=== PATIENT | male | born 1995 | race Caucasian/White ===

== ENCOUNTER 2018-08-01 19:20 | Outpatient (CLI) | payer OTHER | END 2018-08-01 19:21 | disposition EMS.NT | LOC: EMS 19:20 | PROVIDERS: ATTEND Surgery | DX: R69 Illness, unspecified (principal) ==

== ENCOUNTER 2020-08-27 15:42 | Emergency (ER) | payer MEDICAID, OTHER ==
--- NOTE | 2020-08-27 17:08 | ED Physician Documentation ---
History of Present Illness - Stated complaint Stated Complaint: BILAT ARM REDNESS - Chief complaint Chief Complaint: General - Additonal information Additional information: 25-year-old male presents emergency department for evaluation of a rash on bilateral inner elbows that has had for most of his life. He reports that he has psoriasis. As the weather gets warmer and he is outside he sweats more the rash tends to flare. Because he is marginally homed he has not had access to treatment. Typically in the past steroids have helped the rash. He also has a history of Crohn's disorder and was previously on Stelara however he has not taken it for about 6 months as he was socially displaced. He did recently acquire state insurance and is in the process of getting established with a new primary. He denies abdominal pain fevers black or bloody stools. Review of Systems Constitutional: reports: Reviewed and negative Ears: reports: Reviewed and negative Cardiac: reports: Reviewed and negative Respiratory: reports: Reviewed and negative GI: denies: Abdominal Pain, Nausea, Hematemesis, Bloody / black stool : denies: Dysuria, Frequency, Hesitancy Skin: reports: Rash Musculoskeletal: reports: Reviewed and negative PD PAST MEDICAL HISTORY - Past Medical History Past Medical History: Yes Cardiovascular: None Respiratory: None GI: Crohn's disease HEENT: None Psych: Depression, ADD/ADHD, Other Derm: Other - Past Surgical History Past Surgical History: Yes General: Colonoscopy, Other - Present Medications Home Medications: Ambulatory Orders Medication Instructions Recorded Confirmed Betamethasone Aug 0.05% Cream 15 gm TOP BID #1 unit 08/27/20 [Diprolene AF 0.05% Cream] - Allergies Allergies/Adverse Reactions: Allergies Allergy/AdvReac Type Severity Reaction Status Date / Time No Known Drug Allergies Allergy Verified 08/27/20 16:01 - Social History Does the pt smoke?: Yes Smoking Status: Current every day smoker Does the pt drink ETOH?: No Does the pt have substance abuse?: Yes Substance Use and Type: Marijuana, Meth - Immunizations Immunizations are current?: No PD ED PE EXPANDED - General General: Alert, No acute distress - Cardiac Cardiac: Regular Rate, Radial strong equal, Pedal strong equal - Abdomen Abdomen: Normal Bowel sounds. No: Tender to palpation - Derm Derm: Normal color, Warm and dry, Rash (scaling, red pruritic patchy rash inner elbows bilaterally. not present elsewhere) Results - Vitals Vitals: Vital Signs - 24 hr 08/27/20 16:02 Temperature 36.9 C Heart Rate 87 Respiratory 16 Rate Blood Pressure 116/77 O2 Saturation 98 Oxygen O2 Source Room air PD MEDICAL DECISION MAKING - ED course Complexity details: d/w patient ED course: 25-year-old male has a history of Crohn's as well as psoriasis presents to the ER for worsening rash on inner elbows. The rash is consistent with psoriasis. Patient will be started on betamethasone cream for treatment of this rash. I encouraged him to continue follow-up with primary care doctor to reestablish care and have long-term management of his Crohn's. At this time he denies any abdominal pain loose black or bloody stools. Departure - Departure Disposition: 01 Home, Self Care Clinical Impression: Psoriasiform eczema Condition: Stable Record reviewed to determine appropriate education?: Yes Prescriptions: Betamethasone Aug 0.05% Cream [Diprolene AF 0.05% Cream] 15 gm TOP BID #1 unit Comments: Pcaheco your rash is consistent with psoriasis. Because it is localized only to your inner elbows I would like you to apply the betamethasone cream to your rash twice daily. Please schedule an appointment with your primary care provider to get reestablished and discuss long-term management of your Crohn's disease. If at any point the rash is worsening, you develop fevers red streaking have severe belly pain black or bloody stools please return to the ER.
[2020-08-27 17:27] VITALS: BP 121/66
== END 2020-08-27 17:29 | disposition home or self-care (01) ==
LOC: ED 15:42
DX: L30.8 Other specified dermatitis (principal); K50.90 Crohn's disease, unspecified, without complications; F17.200 Nicotine dependence, unspecified, uncomplicated
CPT/HCPCS: 99282; 99283

== ENCOUNTER 2020-10-03 20:56 | Emergency (ER) | payer MEDICAID ==
[2020-10-03 21:15] VITALS: BP 114/80
[2020-10-03] MEDS ORDERED: BENZONATATE 100 MG CAPSULE PO STA (22:10)
--- NOTE | 2020-10-03 22:14 | ED Physician Documentation ---
History of Present Illness - Stated complaint Stated Complaint: COUGH/SI - Chief complaint Chief Complaint: Resp - History obtained from History obtained from: Patient - Additonal information Additional information: 25-year-old man with history of bipolar, depression, anxiety, without prior psych hospitalization and not currently taking any meds presents with depressive symptoms over the past several days related to pressure on him to get a job. Patient also states that he "slept on the concrete last night" because he was helping someone move late at night and they left him and he could get back to Deejay's house. Patient endorses passive suicidal thoughts but no active plan, denies prior suicide attempt or inpatient psych hospitalization. Denies HI or AVH. He is not interested in inpatient psych hospitalization on this visit. Patient also endorses sore throat and a nonproductive cough that started just prior to arrival. Denies ear pain or fever. Review of Systems Ten Systems: 10 systems reviewed and negative Constitutional: denies: Fever, Chills Nose: denies: Rhinorrhea / runny nose, Congestion Throat: reports: Sore throat Cardiac: denies: Chest pain / pressure Respiratory: reports: Cough. denies: Dyspnea GI: denies: Nausea Psychiatric: reports: Depressed. denies: Homicidal, Hallucinations PD PAST MEDICAL HISTORY - Past Medical History Cardiovascular: None Respiratory: None GI: Crohn's disease HEENT: None Psych: Depression, ADD/ADHD, Other Derm: Other - Past Surgical History Past Surgical History: Yes General: Colonoscopy, Other - Present Medications Home Medications: Ambulatory Orders Medication Instructions Recorded Confirmed Benzonatate [Tessalon] 100 mg PO TID PRN #30 10/03/20 - Allergies Allergies/Adverse Reactions: Allergies Allergy/AdvReac Type Severity Reaction Status Date / Time No Known Drug Allergies Allergy Verified 10/03/20 21:15 - Social History Does the pt smoke?: Yes Smoking Status: Current every day smoker Does the pt drink ETOH?: No Does the pt have substance abuse?: Yes - Immunizations Immunizations are current?: No PD ED PE NORMAL - Vitals Vital signs reviewed: Yes - General General: Alert and oriented X 3, No acute distress, Well developed/nourished - HEENT HEENT: Atraumatic, PERRL, EOMI, Moist mucous membranes, Pharynx benign, Other (Mild posterior oropharyngeal erythema) - Neck Neck: Supple, no meningeal sign - Cardiac Cardiac: RRR - Respiratory Respiratory: No respiratory distress, Clear bilaterally - Derm Derm: Normal color, Warm and dry - Neuro Neuro: Alert and oriented X 3 - Psych Psych: Other (Blunted affect. Good eye contact. Endorses depression and passive suicidality but no active intent. Denies HI or AVH) Results - Vitals Vitals: Vital Signs - 24 hr 10/03/20 10/03/20 21:11 22:22 Temperature 36.8 C 36.8 C Heart Rate 100 100 Respiratory 16 16 Rate Blood Pressure 114/80 114/80 O2 Saturation 100 100 Oxygen O2 Source Room air PD MEDICAL DECISION MAKING - ED course ED course: Patient does not want to stay for evaluation for possible IPP hospitalization. Contracts for safety, stating he has no imminent plans for suicide but feels overwhelmed with life. I reiterated that he should return and/or call 911 right away if his symptoms worsen. Patient to be dcd back to [facility]. Departure - Departure Disposition: 01 Home, Self Care Clinical Impression: Depression, Cough Condition: Stable Instructions: ED Viral Syndrome Prescriptions: Benzonatate [Tessalon] 100 mg PO TID PRN #30 PRN Reason: Cough Comments: You were seen in the emergency department for a cough and for depression. Please return to the emergency department if you have worsening thoughts of suicide, develop a plan, or feel unsafe in any way. We have social workers here during the day and you are welcome to come back if you have new or worsening symptoms or other concerns. In addition, for your cough I am prescribing tessalon perles, and did a covid swab. We will call if the results are positive. Discharge Date/Time: 10/03/20 22:23
== END 2020-10-03 22:23 | disposition home or self-care (01) ==
LOC: ED 20:56
DX: F32.9 Major depressive disorder, single episode, unspecified (principal); R05 Cough; F17.200 Nicotine dependence, unspecified, uncomplicated; Z20.822 Contact with and (suspected) exposure to COVID-19
CPT/HCPCS: 87635; 99283; 99284; A9270

== ENCOUNTER 2020-11-26 19:30 | Emergency (ER) | payer MEDICAID ==
[2020-11-26] MEDS ORDERED: LIDOCAINE 1%-EPI 1:100000 20 ML MDV SUBQ STA (20:48)
--- NOTE | 2020-11-26 20:52 | ED Physician Documentation ---
PD HPI SKIN - Stated complaint Stated Complaint: PAINFUL SPOT ON RIGHT LEG - Chief complaint Chief Complaint: Wound - History obtained from History obtained from: Patient - Additional information Additional information: Presents w/ redness and tenderness right lower leg. NOticed today. No fever, chills or flu like sx. No treatment [employer]. History of abscesses. Review of Systems Constitutional: reports: Reviewed and negative Eyes: reports: Reviewed and negative Ears: reports: Reviewed and negative Nose: reports: Reviewed and negative Throat: reports: Reviewed and negative Cardiac: reports: Reviewed and negative Respiratory: reports: Reviewed and negative GI: reports: Reviewed and negative : reports: Reviewed and negative Skin: reports: Lesions (Right lower leg) Musculoskeletal: reports: Reviewed and negative Neurologic: reports: Reviewed and negative Psychiatric: reports: Reviewed and negative Endocrine: reports: Reviewed and negative PD PAST MEDICAL HISTORY - Past Medical History Past Medical History: Yes Cardiovascular: None Respiratory: None GI: Crohn's disease HEENT: None Psych: Depression, ADD/ADHD, Other Derm: Other - Past Surgical History Past Surgical History: Yes General: Colonoscopy, Other - Present Medications Home Medications: Ambulatory Orders Medication Instructions Recorded Confirmed Benzonatate [Tessalon] 100 mg PO TID PRN #30 10/03/20 Sulfamethox/Trimeth 800/160 1 each PO BID #14 tablet 11/26/20 [Bactrim Ds 800/160] cephALEXin [Keflex] 500 mg PO Q6H #28 11/26/20 - Allergies Allergies/Adverse Reactions: Allergies Allergy/AdvReac Type Severity Reaction Status Date / Time No Known Drug Allergies Allergy Verified 11/26/20 19:40 - Social History Does the pt smoke?: Yes Smoking Status: Current every day smoker Does the pt drink ETOH?: No Does the pt have substance abuse?: Yes Substance Use and Type: Marijuana - Immunizations Immunizations are current?: No Immunizations: Other immun not current PD ED PE NORMAL - Vitals Vital signs reviewed: Yes - General General: Alert and oriented X 3, No acute distress, Well developed/nourished - HEENT HEENT: Atraumatic, Pharynx benign - Neck Neck: Supple, no meningeal sign, No JVD - Cardiac Cardiac: RRR, No murmur, No gallop, No rub - Respiratory Respiratory: No respiratory distress, Clear bilaterally - Abdomen Abdomen: Normal bowel sounds, Soft - Derm Derm: Normal color, Warm and dry, Other (3 x 3cm of erythema w/ central pustule and fluctuance lateral right lower leg. Multple scratches and abrasions on lower legs, no other areas of infection. ) - Extremities Extremities: No deformity, No tenderness to palpate, Normal ROM s pain - Neuro Neuro: Alert and oriented X 3 Eye Opening: Spontaneous Motor: Obeys Commands Verbal: Oriented GCS Score: 15 - Psych Psych: Normal mood, Normal affect Results - Vitals Vitals: Vital Signs - 24 hr 11/26/20 19:40 Temperature 37.2 C Heart Rate 100 Respiratory 18 Rate Blood Pressure 114/74 O2 Saturation 97 Oxygen O2 Source Room air Procedures - Abscess I&D (location) Lower extremity right Lateral Preparation: With epi Incision: Incised with scalpel, Loculations broken Other: Pt tolerated well, Dressing applied, Antibiotic prescribed PD MEDICAL DECISION MAKING - ED course Complexity details: considered differential, d/w patient ED course: 25-year-old male who presented with a right lower leg abscess. We obtained informed verbal consent for an I&D, and The abscess. The incision was covered with gauze and Coban. Patient was placed on Bactrim and Keflex and advised to use ibuprofen or Tylenol for pain. I reviewed return precautions including increased redness, increased pain, fever chills or otherwise worsening symptoms Departure - Departure Disposition: 01 Home, Self Care Clinical Impression: Abscess Condition: Good Prescriptions: Sulfamethox/Trimeth 800/160 [Bactrim Ds 800/160] 1 each PO BID #14 tablet cephALEXin [Keflex] 500 mg PO Q6H #28 Comments: You have an abscess on the right lower leg. We drained it and placed you on antibiotics. You can use a warm compress to the area. If it worsens or you develop fever or other new concerns return to the ER.
[2020-11-26 21:26] VITALS: BP 129/84
== END 2020-11-26 21:27 | disposition home or self-care (01) ==
LOC: ED 19:30
DX: L02.415 Cutaneous abscess of right lower limb (principal); F17.200 Nicotine dependence, unspecified, uncomplicated
CPT/HCPCS: 10060